=== PATIENT | male | born 2000 | race Caucasian/White ===

== ENCOUNTER 2022-10-27 18:23 | Emergency (ER) | payer OTHER ==
[2022-10-27 18:32] VITALS: BP 150/71
--- NOTE | 2022-10-27 19:02 | XRAY Report ---
PROCEDURE: Wrist 4 View LT INDICATIONS: Trauma TECHNIQUE: 4 views of the wrist were acquired. COMPARISON: None FINDINGS: Bones: Questionable subtle lucency is seen at the distal lateral aspect of the radius. No dislocation or displaced fracture is apparent. Soft tissues: No suspicious calcifications. IMPRESSION: Questionable lucency of the distal radius. Correlate for point tenderness for nondisplaced fracture. Consider follow-up radiograph to reassess. Reviewed by: Amrik Willingham MD on 10/27/2022 7:00 PM [facility] Approved by: Amrik Willingham MD on 10/27/2022 7:00 PM [facility] Station ID: [id number]
[2022-10-27] MEDS ORDERED: IBUPROFEN 800 MG TABLET PO STA (19:32)
--- NOTE | 2022-10-27 19:40 | ED Physician Documentation ---
PD HPI UPPER EXT INJURY - Stated complaint Stated Complaint: L WRIST INJ - Chief complaint Chief Complaint: Trauma Ext - History obtained from History obtained from: Patient - History of Present Illness Location: Left, Wrist Type of injury: Fall Where injury occurred: Other (snowboarding) Pain level max: 6 Pain level now: 6 - Additonal information Additional information: 21-year-old male states that he fell injuring the left wrist while snowboarding today. Worse with movement, better with rest. Complains of swelling and pain. No numbness or tingling. Patient is right-handed. Review of Systems Constitutional: denies: Fever, Chills Skin: denies: Rash Musculoskeletal: denies: Neck pain, Back pain Neurologic: denies: Headache PD PAST MEDICAL HISTORY - Past Medical History Past Medical History: No - Past Surgical History Past Surgical History: No - Present Medications Home Medications: Ambulatory Orders Medication Instructions Recorded Confirmed No Known Home Medications 10/27/22 10/27/22 - Allergies Allergies/Adverse Reactions: Allergies Allergy/AdvReac Type Severity Reaction Status Date / Time No Known Drug Allergies Allergy Verified 10/27/22 18:31 PD ED PE NORMAL - Vitals Vital signs reviewed: Yes - General General: Alert and oriented X 3, No acute distress - HEENT HEENT: Moist mucous membranes - Neck Neck: Supple, no meningeal sign - Derm Derm: Warm and dry - Extremities Extremities: Other (L arm - Tender to palpation over the dorsal aspect of the left wrist, distal radius. No gross deformity. No snuffbox tenderness. Mild swelling over the dorsal aspect of the hand. Full range of motion of the fingers, though there is some pain over the wrist with this. Neurovascularly intact.) - Neuro Neuro: Alert and oriented X 3 - Psych Psych: Normal mood, Normal affect Results - Vitals Vitals: Vital Signs - 24 hr 10/27/22 18:26 Temperature 37.8 C Heart Rate 79 Respiratory 14 Rate Blood Pressure 150/71 H O2 Saturation 98 Oxygen O2 Source Room air - Rads (name of study) L wrist xray Radiology: Final report received, See rad report Procedures - Splint (location) - Minor L wrist Splint applied by: Physician Type of splint: Fiberglass, Short arm, Volar cock up Other: Patient tolerated well, No complications, Neurovascular intact, Sling provided PD Medical Decision Making - ED course Complexity details: reviewed results, re-evaluated patient, considered differential, d/w patient ED course: 21-year-old male with left wrist pain after a fall. There is a lucency in the distal radius, possible nondisplaced fracture. We will err on the side of caution and placed him in a volar splint. We will have him follow-up with his doctor and orthopedics in 1 week for repeat x-rays. Patient declines pain medication for home. Neurovascularly intact. Patient counseled regarding signs and symptoms for which I believe and urgent re-evaluation would be necessary. Patient with good understanding of and agreement to plan and is comfortable going home at this time This document was made in part using voice recognition software. While efforts are made to proofread this document, sound alike and grammatical errors may occur. Departure - Departure Disposition: Home, Self Care Clinical Impression: Distal radius fracture, left Qualifiers: Encounter type: initial encounter Fracture type: closed Fracture morphology: unspecified fracture morphology Qualified Code(s): S52.502A - Unspecified fracture of the lower end of left radius, initial encounter for closed fracture Condition: Good Instructions: ED Fx Upper Ext Follow-Up: Orthopedic Care [Provider Group] - Within 1 week Comments: Please follow-up with your PCM or orthopedics within 1 week for repeat evaluation. Stay in the splint until released. There does appear to be a possible lucency on your x-ray that could be a fracture. This will need to be reevaluated in about 1 week with a repeat x-ray. You can use Motrin or Tylenol as needed for pain. Please return if you worsen FINDINGS: Bones: Questionable subtle lucency is seen at the distal lateral aspect of the radius. No dislocation or displaced fracture is apparent. Soft tissues: No suspicious calcifications. IMPRESSION: Questionable lucency of the distal radius. Correlate for point tenderness for nondisplaced fracture. Consider follow-up radiograph to reassess. Forms: Activity restrictions Discharge Date/Time: 10/27/22 19:44
== END 2022-10-27 19:44 | disposition home or self-care (01) ==
LOC: ED 18:23
DX: S52.502A Unspecified fracture of the lower end of left radius, initial encounter for closed fracture (principal); Y93.23 Activity, snow (alpine) (downhill) skiing, snowboarding, sledding, tobogganing and snow tubing
CPT/HCPCS: 29125; 73110; 99283; A9270

== ENCOUNTER 2024-06-14 13:15 | Outpatient (CLI) | payer OTHER ==
--- NOTE | 2024-06-14 15:42 | XRAY Report ---
PROCEDURE: Chest 2V INDICATIONS: UPPER RESPITORY INFECTION TECHNIQUE: 2 views of the chest were acquired. COMPARISON: None. FINDINGS: Surgical changes and devices: None. Lungs and pleura: Patchy right upper lobe opacity. Mediastinum: Mediastinal contours appear normal. Heart size is normal. Bones and chest wall: No suspicious bony lesions. Overlying soft tissues appear unremarkable. IMPRESSION: Patchy right upper lobe opacity, concerning for pneumonia. Reviewed by: Gen Bernal MD on 06/14/2024 3:41 PM PDT Approved by: Gen Bernal MD on 06/14/2024 3:41 PM PDT Station ID: [id number]
== END 2024-06-14 13:30 | disposition home or self-care (01) ==
LOC: DI.N 13:15
PROVIDERS: ATTEND Physician Assistant Medical
DX: R91.8 Other nonspecific abnormal finding of lung field (principal)

== ENCOUNTER 2024-06-21 14:00 | Outpatient (CLI) | payer OTHER | END 2024-06-21 14:15 | disposition home or self-care (01) | LOC: LAB.N 14:00 | PROVIDERS: ATTEND Physician Assistant Medical | DX: J02.9 Acute pharyngitis, unspecified (principal) | CPT/HCPCS: 87070 ==

== ENCOUNTER 2024-06-29 13:15 | Outpatient (CLI) | payer OTHER ==
[2024-06-29 21:49] LABS: INFECTIOUS MONONUCLEOSIS NEGATIVE (Negative)
== END 2024-06-29 13:30 | disposition home or self-care (01) ==
LOC: LAB.N 13:15
PROVIDERS: ATTEND Physician Assistant Medical
DX: J02.9 Acute pharyngitis, unspecified (principal)
CPT/HCPCS: 86308; 87070